=== PATIENT | male | born 1980 | race Caucasian/White ===

== ENCOUNTER 2018-09-30 08:51 | Day surgery (SDC) | payer OTHER ==
[~2018-09-30 08:51] MED LIST: Lactated Ringers 1,000 ML IV SCH; Sodium Chloride 0.9% 10 ML Syringe FLUSH PRN; Sodium Chloride 0.9% 2.5 ML Syringe FLUSH PRN
--- NOTE | 2018-09-30 10:53 | PCM.PREANE ---
Preanesthetic Assessment - Anesthesia/Transfusion/Family Hx Anesthesia History: No Prior Anesthesia Family History of Anesthesia Reaction: No Transfusion History: No Prior Transfusion(s) - Review of Systems General: No Symptoms Pulmonary: No Symptoms Cardiovascular: No Symptoms Neurological: No Symptoms Other: Reports: None - Physical Assessment NPO Status Date: 09/29/18 O2 Sat by Pulse Oximetry: 97 Respiratory Rate: 16 Vital Signs: Last Vital Signs Temp 96.8 F 09/30/18 09:45 Pulse 70 09/30/18 09:45 Resp 16 09/30/18 09:45 BP 139/89 09/30/18 09:45 Pulse Ox 97 09/30/18 09:45 Height: 6 ft 1 in Weight: 117.027 kg ASA Class: 2 Mental Status: Alert & Oriented x3 Airway Class: Mallampati = 2 Dentition: Reports: Normal Dentition ROM/Head Extension: Full Lungs: Clear to Auscultation, Normal Respiratory Effort Cardiovascular: Regular Rate, Regular Rhythm - Allergies Allergies/Adverse Reactions: Allergies Allergy/AdvReac Type Severity Reaction Status Date / Time No Known Allergies Allergy Verified 09/24/18 10:54 - Blood Blood Available: No - Anesthesia Plan Pre-Op Medication Ordered: None - Acknowledgements Anesthesia Type Planned: General Anesthesia, MAC Pt an Appropriate Candidate for the Planned Anesthesia: Yes Alternatives and Risks of Anesthesia Discussed w Pt/Guardian: Yes Pt/Guardian Understands and Agrees with Anesthesia Plan: Yes Additional Comments: PMH: gerd, htn, smoker PLAN: mac/tiva PreAnesthesia Questionnaire HEENT History: Reports: Other (See Below) Other HEENT History: wears contacts/glasses Cardiovascular History: Reports: Other (See Below) Other Cardiovascular History: states blood pressure is high at times but is on no BP meds Gastrointestinal History: Reports: GERD Genitourinary History: Reports: Renal Calculus Endocrine/Metabolic History: Reports: Obesity/BMI 30+ - Past Surgical History Head Surgeries/Procedures: Reports: None - SUBSTANCE USE Smoking Status *Q: Current Every Day Smoker Tobacco Use Within Last Twelve Months: Cigarettes Days Per Week of Alcohol Use: 7 Number of Drinks Per Day: 4 Total Drinks Per Week: 28 Recreational Drug Use History: No - HOME MEDS Home Medications: Home Meds Esomeprazole Magnesium 20 mg PO DAILY 09/24/18 [History] Ranitidine [Zantac] 150 mg PO ASDIRECTED PRN 09/24/18 [History] - CURRENT (IN HOUSE) MEDS Current Meds: Current Medications Lactated Ringer's (Ringers, Lactated) 1,000 mls @ 125 mls/hr IV ASDIRECTED LUCINDA Last Admin: 09/30/18 10:05 Dose: 125 mls/hr Sodium Chloride (Saline Flush) 10 ml FLUSH ASDIRECTED PRN PRN Reason: Keep Vein Open Sodium Chloride (Saline Flush) 2.5 ml FLUSH ASDIRECTED PRN PRN Reason: Keep Vein Open Sodium Chloride (Saline Flush) 10 ml FLUSH ASDIRECTED PRN PRN Reason: Keep Vein Open Sodium Chloride (Saline Flush) 2.5 ml FLUSH ASDIRECTED PRN PRN Reason: Keep Vein Open
[2018-09-30] MEDS ORDERED: Propofol 200 MG/20 ML SDV ONE (11:58)
[2018-09-30] MEDS ORDERED: fentaNYL 100 MCG/2 ML SDV ONE (11:58)
[2018-09-30] MEDS ORDERED: Midazolam 1 MG/ML 2 ML SDV ONE (11:58)
--- NOTE | 2018-09-30 12:33 | PCM48HPAN ---
Post Anesthesia Note - EVALUATION WITHIN 48HRS OF ANESTHETIC Vital Signs in Normal Range: Yes Patient Participated in Evaluation: Yes Respiratory Function Stable: Yes Airway Patent: Yes Cardiovascular Function Stable: Yes Hydration Status Stable: Yes Pain Control Satisfactory: Yes Nausea and Vomiting Control Satisfactory: Yes Mental Status Recovered: Yes Resp Rate: 16
--- NOTE | 2018-09-30 12:33 | PCM.POSTAN ---
POST ANESTHESIA ASSESSMENT - MENTAL STATUS Mental Status: Alert, Oriented - RESPIRATORY Respiratory Status: Respiratory Rate WNL, Airway Patent, O2 Saturation Stable - CARDIOVASCULAR CV Status: Pulse Rate WNL, Blood Pressure Stable - GASTROINTESTINAL GI Status: No Symptoms - POST OP HYDRATION Hydration Status: Adequate & Stable
--- NOTE | 2018-09-30 12:50 | PCM.OPNOTE ---
- General Post-Op/Procedure Note Date of Surgery/Procedure: 09/30/18 Operative Procedure(s): Diagnostic EGD and colonoscopy Findings: Normal egd, sigmoid colon polyps x 2 Pre Op Diagnosis: Reflux, change in bowel habits Post-Op Diagnosis: GERD, sigmoid colon polyps x 2 Anesthesia Technique: MAC Primary Surgeon: Karissa Harrison Condition: Good
--- NOTE | 2018-10-01 11:58 | OR ---
SURGEON: LIANNA OCHOA MD DATE OF PROCEDURE: 09/30/2018 PREOPERATIVE DIAGNOSES: 1. Gastroesophageal reflux disease. 2. Change in bowel habits. POSTOPERATIVE DIAGNOSES: 1. Normal gastroesophageal reflux disease. 2. Sigmoid colon polyp x2. PROCEDURE PERFORMED: Diagnostic esophagogastroduodenoscopy and colonoscopy. ANESTHESIA: MAC. INSTRUMENT USED: Olympus endoscope and colonoscope. EXTENT OF EXAM: To the second portion of duodenum, to the cecum. PREPARATION: Good. LIMITATIONS: None. INDICATION FOR EXAMINATION: The patient is a 38-year-old male who has been having worsening reflux symptoms. He has also had several years of alternating bowel habits. The decision was made to proceed with a diagnostic EGD and colonoscopy. I explained the procedure, expected perioperative course, and risks including bleeding, infection, or damage to surrounding structures including perforation. The patient verbalized understanding and wishes to proceed. PROCEDURE IN DETAIL: The patient was brought to the endoscopy suite and placed in a left lateral decubitus position. A time-out was completed verifying the patient's name, age, date of , allergies, and procedure to be performed. Monitored anesthesia care was induced and continuous oxygen was provided via nasal cannula throughout the procedure. A bite block was placed in the patient's mouth. After adequate sedation was achieved, a well lubricated endoscope was placed in the patient's mouth and advanced under direct visualization to the second portion of the duodenum. This appeared normal and a photograph was taken. Scope was then straightened out and fully withdrawn while examining the color, texture, anatomy, and integrity mucosa of the upper GI tract. The duodenum appeared normal. Scope was brought into the stomach and a photograph was taken of the GE junction as well as the pylorus. Both appeared normal. The gastric mucosa appeared free of gross inflammation or ulceration. Biopsies were taken of the gastric antrum, body, and fundus and sent for histologic review and H. pylori testing. The scope was brought into the distal esophagus and a photograph was taken of the Z-line, this appeared normal. The distal esophagus had no gross evidence of esophagitis. A biopsy was taken of the esophagus using a cold biopsy forceps. The remainder of the esophageal mucosa was free of pathology. The scope was then removed and this portion of procedure was terminated. A digital rectal exam was performed. This exam was within normal limits. A well lubricated colonoscope was inserted into the rectum and advanced under direct visualization to the level of the cecum. The cecum was identified by both visual and anatomic landmarks. A photograph was taken of cecal cap. The scope was then straightened out and fully withdrawn while examining the color, texture, anatomy, and integrity mucosa from the cecum to the anal canal. The patient was found to have two small sigmoid colon polyps, these were both removed in piecemeal fashion using a cold biopsy forceps. The scope was then brought into the rectum and retroflexed to allow visualization of the anal canal opening. This appeared normal and a photograph was taken. Scope was then straightened out and fully withdrawn. The cecum to anus time was 10 minutes. The patient tolerated the procedure well and was taken to PACU in stable condition. ENDOSCOPIC DIAGNOSES: 1. Gastroesophageal reflux disease. 2. Normal colonoscopy. RECOMMENDATIONS: Follow up in clinic in 2 weeks. The patient should continue to take Nexium 40 mg daily for now. LOUISE WYMAN /[id number]
== END 2018-09-30 13:20 | disposition home or self-care (01) ==
LOC: MW.SDS 08:51
PROVIDERS: ATTEND Surgery
DX: K21.9 Gastro-esophageal reflux disease without esophagitis (principal); K29.50 Unspecified chronic gastritis without bleeding; K20.9 Esophagitis, unspecified; R19.4 Change in bowel habit; K63.5 Polyp of colon; I10 Essential (primary) hypertension; E66.9 Obesity, unspecified; Z68.34 Body mass index [BMI] 34.0-34.9, adult; F17.210 Nicotine dependence, cigarettes, uncomplicated; Z79.899 Other long term (current) drug therapy
CPT/HCPCS: 88305; 88312; J2250; J2704; J3010; J7120